=== PATIENT | female | born 1955 | race Caucasian/White ===

== ENCOUNTER 2019-03-10 18:11 | Inpatient (IN) | payer BC, OTHER ==
[~2019-03-10] VITALS: Ht 152.4 cm; Wt 63.5 kg
[~2019-03-10 18:11] MED LIST: ASPI-1821; GLIP10TA12; LOVA40TA5; METF1000; [UNRECOGNIZED DRUG - OTHER]; biotin; byetta; colace; vit b12; zoloft
[2019-03-10 18:15] VITALS: BP 152/89
--- NOTE | 2019-03-10 18:41 | NUR ---
c/o generalized abdominal pain/nausea x4 quadrants x 1 week and bright red bloody diarrhea x 1 day. pt denies vomiting & fever. bowel sounds present x 4, abdomen soft, flat, tender to palpation x4 quadrants. provided pt with hat for toilet to collect stool sample.
--- NOTE | 2019-03-10 19:13 | NUR ---
report given to DAHIANA Gutierrez for transfer of care.
--- NOTE | 2019-03-10 19:13 | NUR ---
REPORT RECIEVED. PATIENT PLACED ON MONITOR AND PUT IN GOWN. AWAITING CT AND LAB WORK.
--- NOTE | 2019-03-10 19:14 | NUR ---
stool and urine sample collected and sent to lab
--- NOTE | 2019-03-10 19:27 | NUR ---
LAB AT BEDSIDE.
--- NOTE | 2019-03-10 19:30 | NUR ---
PATIENT TAKEN TO CT IN WC
[2019-03-10 19:38] LABS: BASOPHILS # (AUTO) 0.1 K/uL (0.00-0.22); BASOPHILS % (AUTO) 0.5 % (0.0-2.0); EOSINOPHILS # (AUTO) 2.1 K/uL (0-0.4); EOSINOPHILS % (AUTO) 17.7 % (0.0-4.0); HEMATOCRIT 38.5 % (36-48); HEMOGLOBIN 12.4 g/dL (12.0-16.0); LYMPHOCYTES # (AUTO) 2.2 K/uL (2.5-16.5); LYMPHOCYTES % (AUTO) 18.6 % (20.5-51.1); MEAN CORPUSCULAR HEMOGLOBIN 27 pg (27-31); MEAN CORPUSCULAR HGB CONC 32 g/dL (33-37); MEAN CORPUSCULAR VOLUME 83.6 fL (80-94); MONOCYTES # (AUTO) 0.6 K/uL (0.8-1.0); MONOCYTES % (AUTO) 5.2 % (1.7-9.3); NEUTROPHILS # (AUTO) 6.7 K/uL (1.8-7.7); PLATELET COUNT (AUTO) 445 K/uL (140-450); RED CELL DISTRIBUTION WIDTH 15.6 % (11.6-13.7); WHITE BLOOD COUNT (AUTO) 11.6 K/uL (4.8-10.8)
[2019-03-10 19:45] LABS: ANION GAP 14.3 (8-16); CARBON DIOXIDE 27.2 mmol/L (21-32); CREATININE 0.9 mg/dL (0.6-1.3); POTASSIUM 4.5 mmol/L (3.5-5.1)
[2019-03-10 19:49] LABS: PROTHROMBIN TIME 10.3 secs (10.8-13.4)
--- NOTE | 2019-03-10 19:50 | NUR ---
DR ACEVEDO MADE AWARE [facility] AND STATES SHE IS NOT FEELING NORMAL, BP 100/68, PULSE 104. ORDERS RECIEVED.
[2019-03-10 19:51] LABS: ALBUMIN 3.5 g/dL (3.4-5.0); TOTAL BILIRUBIN 0.3 mg/dL (0.0-1.0)
[2019-03-10] MEDS ORDERED: NACL 0.9% 2,000 ML IV ONE (20:00)
[2019-03-10] MEDS ORDERED: ONDANSETRON 4 MG/2 ML VIAL IVP ONE (20:00)
[2019-03-10] MEDS ORDERED: CIPROFLOXACIN 250 MG TAB PO ONE (20:20)
[2019-03-10] MEDS ORDERED: metroNIDAZOLE 500 MG/NS PREMIX 100 ML IV ONE (20:20)
[2019-03-10] MEDS ORDERED: HYDROcodone/APAP 7.5/325 MG 1 TAB PO PRN (20:25)
[2019-03-10] MEDS ORDERED: ONDANSETRON 4 MG/2 ML VIAL IM/IVP PRN (20:25)
[2019-03-10] MEDS ORDERED: DOCUSATE SODIUM 100 MG GELCAP PO PRN (20:25)
[2019-03-10] MEDS ORDERED: ACETAMINOPHEN 325 MG TAB PO PRN (20:25)
[2019-03-10] MEDS ORDERED: MORPHINE SULFATE 2 MG/ML SYR IVP PRN (20:25)
[2019-03-10] MEDS ORDERED: NACL 0.9% 1,000 ML IV SCH (20:25)
--- NOTE | 2019-03-10 20:25 | NUR ---
PATIENT STATES SHE IS FEELING MUCH BETTER. DR ACEVEDO MADE AWARE.
[2019-03-10 20:36] LABS: APPEARANCE,URINE CLEAR (CLEAR); BILIRUBIN,URINE NEGATIVE (NEGATIVE); BLOOD, URINE NEGATIVE (NEGATIVE); COLOR,URINE YELLOW (YELLOW); LEUKOCYTE ESTERASE ,URINE NEGATIVE (NEGATIVE); NITRITE, URINE NEGATIVE (NEGATIVE); UGLUCOSE NEGATIVE (NEGATIVE)
[2019-03-10 20:51] LABS: BARBITURATE, URINE NEG. ng/ml (NEG <=200); BENZODIAZEPINE, URINE NEG. ng/mL (NEG <=200); CANNABINOID, URINE NEG. ng/mL (NEG <=50); COCAINE, URINE NEG. ng/mL (NEG <=300); OPIATE, URINE NEG. ng/mL (NEG <=2000); PHENCYCLIDINE SCREEN,URINE NEG. ng/mL (NEG <=25)
[2019-03-10 20:58] LABS: FREE T4 (FREE THYROXINE) 1.09 ng/dL (0.76-1.46); MAGNESIUM 1.9 mg/dL (1.8-2.4); PHOSPHORUS 3.8 mg/dL (2.5-4.9); THYROID STIMULATING HORMONE 1.79 uIU/mL (0.34-3.74)
[2019-03-10 21:00] VITALS: BP 107/59
--- NOTE | 2019-03-10 21:00 | NUR ---
PT BROUGHT UP VIA GURNEY BY [facility] EMT AND ROCIO RN TO ROOM 123, PT AMBULATED STEADILY TO BED A. REPORT GIVEN BY ROCIO AT BEDSIDE. PT HAS NO S/S OF DISTRESS NOTED. SHE IS AOX4 WITH SKIN INTACT. SHE HAS AN 18 G ON LEFT F/A AT THIS TIME RUNNING FLAGYL PIGGY BACK AT 100MLS/HR. PT DENIES PAIN V/S FOLLOWS T 97.5 P 97 R 18 B/P 116/53 02 98% ON ROOM AIR.
--- NOTE | 2019-03-10 21:11 | NUR ---
PATIENT ADMITTED TO [facility], UNDER CARE OF DR. WHITT. REPORT GIVEN TO DAHIANA WHITE, FOR CONTINUED CARE. TRANSORTED ON [facility]ETHEL BY EMT AND RN. PATIENT AAO AND VSS.
[2019-03-10] MEDS ORDERED: DEXTROSE 50% 50 ML SYR IVP PRN (21:20)
--- NOTE | 2019-03-10 21:30 | NUR ---
DR. العلي AT BEDSIDE ASKING ADMISSION QUESTIONS AND EVALUATING PT AT BEDSIDE. CRITICAL LAB REPORTED FOR THIS PT IT WAS LACTIC ACID 2.8. MD MADE AWARE. PT HAD BOLUS IN ER NO NEW ORDERS NOTED.
[2019-03-10] MEDS ORDERED: DEXT 5% /NACL 0.9% 1,000 ML IV SCH (21:35)
--- NOTE | 2019-03-10 22:00 | NUR ---
PORTABLE X-RAY DONE AT BEDSIDE.
[2019-03-11 04:00] VITALS: BP 93/3
[2019-03-11] MEDS: BLOOD GLUCOSE MONITORING 1 DEV DEV FS SCH ×4 (06:00→20:28)
[2019-03-11] MEDS: metroNIDAZOLE 500 MG/NS PREMIX 100 ML IV SCH ×3 (06:13→20:29)
--- NOTE | 2019-03-11 07:20 | NUR ---
REPORT GIVEN TO GREY TALBOT DAYSHIFT NURSE AT BEDSIDE FOR CONTINUITY OF CARE,PT IN STABLE CONDITION.
--- NOTE | 2019-03-11 07:25 | NUR ---
RECEIVED PT FROM SUPERVISOR PAPER PRODUCTS NURSE, CHRISTOPHER, PT IS AWAKE AND LYING ON THE BED WITH SIDE RAILS UP AND CALL LIGHT WITHIN REACH, PT HAS AN IV LINE ON THE LEFT FA G.18, WITH D5 NS INFUSING AT 70ML/HR, INTACT, PT DENIES PAIN AND NO SOB NOTED. WILL MONITOR PT.
[2019-03-11 07:32] LABS: BASOPHILS # (AUTO) 0.1 K/uL (0.00-0.22); BASOPHILS % (AUTO) 0.5 % (0.0-2.0); EOSINOPHILS # (AUTO) 1.9 K/uL (0-0.4); EOSINOPHILS % (AUTO) 17.7 % (0.0-4.0); HEMATOCRIT 28.5 % (36-48); HEMOGLOBIN 9.4 g/dL (12.0-16.0); LYMPHOCYTES # (AUTO) 2.4 K/uL (2.5-16.5); LYMPHOCYTES % (AUTO) 22.2 % (20.5-51.1); MEAN CORPUSCULAR HEMOGLOBIN 28 pg (27-31); MEAN CORPUSCULAR HGB CONC 33 g/dL (33-37); MEAN CORPUSCULAR VOLUME 83.5 fL (80-94); MONOCYTES # (AUTO) 0.6 K/uL (0.8-1.0); MONOCYTES % (AUTO) 5.3 % (1.7-9.3); NEUTROPHILS % (AUTO) 54.3 % (42.2-75.2); PLATELET COUNT (AUTO) 348 K/uL (140-450); RED BLOOD CELL COUNT(AUTO) 3.42 MIL/uL (4.20-5.40); RED CELL DISTRIBUTION WIDTH 15.6 % (11.6-13.7); WHITE BLOOD COUNT (AUTO) 10.9 K/uL (4.8-10.8)
[2019-03-11 07:34] LABS: ANION GAP 11.1 (8-16); CARBON DIOXIDE 24.7 mmol/L (21-32); CREATININE 0.6 mg/dL (0.6-1.3); POTASSIUM 3.8 mmol/L (3.5-5.1)
[2019-03-11 07:35] LABS: CHOL/HDL RATIO 2.2 (1-4.5)
[2019-03-11 08:00] VITALS: BP 106/59
--- NOTE | 2019-03-11 08:00 | NUR ---
PT IS AWAKE AND VITAL SIGNS TAKEN AND BP IS 106/59, PULSE IS 83, TEMPERATURE IS 98, O2 SATURATION IS 100%, AND RESPIRATION IS 18/MIN. NO SIGN OF DSITRESS NOTED AND WILL MONITOR PT.
[2019-03-11] MEDS: SERTRALINE 50 MG TAB PO SCH (08:31)
[2019-03-11] MEDS: ATORVASTATIN 20 MG TAB PO SCH (08:31)
[2019-03-11] MEDS: glipiZIDE 10 MG TAB PO SCH ×2 (08:32→20:29)
[2019-03-11] MEDS: LACTOBACILLUS RHAMNOSUS GG 1 EACH CAP PO SCH (08:32)
[2019-03-11] MEDS: NACL 0.9% 1,000 ML IV SCH (08:33)
[2019-03-11] MEDS: LISINOPRIL 10 MG TAB PO SCH ×2 (08:37→09:00)
--- NOTE | 2019-03-11 08:45 | NUR ---
PATIENT HAS BEEN SCREENED AND CATEGORIZED MODERATE NUTRITION RISK. PATIENT WILL BE SEEN WITHIN 3-5 DAYS OF ADMISSION. 03/13/19[address]IE [address]
--- NOTE | 2019-03-11 08:46 | NUR ---
PT IS AWAKE AND ORAL MEDICATIONS WERE GIVEN, BP MEDICATION WAS NOT GIVEN PER PARAMETER. WILL MONITOR PT.
[2019-03-11] MEDS ORDERED: cefTRIAXone 2,000 MG in DEXTROSE 5% 100 ML IV SCH (09:00)
[2019-03-11] MEDS ORDERED: metFORMIN 500 MG TAB PO SCH (09:00)
[2019-03-11] MEDS ORDERED: ASPIRIN 81 MG TAB.CHEW PO SCH (09:00)
[2019-03-11 12:00] VITALS: BP 123/67
[2019-03-11 13:19] LABS: BASOPHILS % (AUTO) 0.6 % (0.0-2.0); EOSINOPHILS # (AUTO) 1.4 K/uL (0-0.4); EOSINOPHILS % (AUTO) 17.5 % (0.0-4.0); HEMATOCRIT 29.2 % (36-48); HEMOGLOBIN 9.6 g/dL (12.0-16.0); LYMPHOCYTES % (AUTO) 24.6 % (20.5-51.1); MEAN CORPUSCULAR HEMOGLOBIN 28 pg (27-31); MEAN CORPUSCULAR HGB CONC 33 g/dL (33-37); MEAN CORPUSCULAR VOLUME 84.3 fL (80-94); MONOCYTES # (AUTO) 0.5 K/uL (0.8-1.0); MONOCYTES % (AUTO) 6.4 % (1.7-9.3); NEUTROPHILS # (AUTO) 4.2 K/uL (1.8-7.7); NEUTROPHILS % (AUTO) 50.9 % (42.2-75.2); PLATELET COUNT (AUTO) 370 K/uL (140-450); RED BLOOD CELL COUNT(AUTO) 3.47 MIL/uL (4.20-5.40); RED CELL DISTRIBUTION WIDTH 15.7 % (11.6-13.7); WHITE BLOOD COUNT (AUTO) 8.3 K/uL (4.8-10.8)
[2019-03-11] MEDS: cefTRIAXone 2,000 MG in DEXTROSE 5% 100 ML IV SCH (14:00)
[2019-03-11] MEDS: INSULIN LISPRO SLIDING SCALE 100 UNITS/ML VIAL SUBQ PRN ×2 (14:09→20:31)
--- NOTE | 2019-03-11 15:28 | NUR ---
PT IS AWAKE AND ON THE BEDSIDE, IV MEDICATION WAS GIVEN VIA PIGGYBACK, PT TOLERATED IT. NO SIGN OF DISTRESS NOTED AND WILL MONITOR PT.
[2019-03-11 16:00] VITALS: BP 111/65
[2019-03-11] MEDS: metFORMIN 500 MG TAB PO SCH (17:37)
--- NOTE | 2019-03-11 17:37 | NUR ---
PT IS AWAKE AND SEATED ON THE BED WITH FAMILY ON THE BEDSIDE, BLOOD GLUCOSE CHECK DONE AND RESULT IS 117, ORAL MEDICATION WAS GIVEN AND PT TOLERATED IT. NO SIGN OF DISTRESS NOTED AND WILL MONITOR PT.
[2019-03-11] MEDS ORDERED: BOWEL EVACUANT DRINK 4,000 ML PDS PO ONE (18:55)
[2019-03-11] MEDS ORDERED: METOCLOPRAMIDE 10 MG/2 ML INJ VIAL IVP ONE (18:55)
--- NOTE | 2019-03-11 19:10 | NUR ---
ENDORSED PT TO V BELT COVERER NURSECHANTALE FOR CONTINUITY OF CARE. PT IS STABLE AT THIS TIME.
--- NOTE | 2019-03-11 19:11 | NUR ---
RECEIVED REPORT FROM DAY SHIFT NURSE GREY-RN AT BEDSIDE. PT RESTING IN BED, AOX4, ON ROOM AIR WITH LEFT FA #18G RUNNING NS @60ML/HR. DISCUSSED PLAN OF CARE AND PT VERBALIZED UNDERSTANDING. NO S/S OF RESPIRATORY DISTRESS OR DISCOMFORT NOTED AT THIS TIME. BED IN LOWEST POSITION, BED BREAKS ON, BOTH SIDE RAILS UP. BEDSIDE TABLE AND CALL LIGHT WITHIN REACH. WILL CONTINUE TO MONITOR.
[2019-03-11 20:00] VITALS: BP 132/67
--- NOTE | 2019-03-11 20:00 | NUR ---
VITAL SIGNS TAKEN AND TOLERATED WELL. BLOOD GLUCOSE 162- WILL ADMINISTER INSULIN COVERAGE. NO S/S OF RESPIRATORY DISTRESS OR DISCOMFORT NOTED AT THIS TIME. WILL CONTINUE TO MONITOR.
[2019-03-11] MEDS: INSULIN LANTUS 100 UNITS/ML 10 ML VIAL SUBQ SCH (20:30)
--- NOTE | 2019-03-11 20:31 | NUR ---
SCHEDULED MEDICATION GIVEN. INSULIN COVERAGE GIVEN. PT TOLERATED WELL. REGLAN GIVEN BEFORE GOLYTELY INSTRUCTED BY DR. SARMIENTO. PT TOLERATED WELL. NO S/S OF RESPIRATORY DISTRESS OR DISCOMFORT NOTED AT THIS TIME. WILL CONTINUE TO MONITOR.
--- NOTE | 2019-03-11 22:00 | NUR ---
PT SLEEPING IN BED. NO S/S OF RESPIRATORY DISTRESS OR DISCOMFORT NOTED AT THIS TIME. WILL CONTINUE TO MONITOR.
[2019-03-12] VITALS: BP 126/61
--- NOTE | 2019-03-12 | NUR ---
VITAL SIGNS TAKEN AND TOLERATED WELL. NO S/S OF RESPIRATORY DISTRESS OR DISCOMFORT NOTED AT THIS TIME. WILL CONTINUE TO MONITOR.
[2019-03-12] MEDS: NACL 0.9% 1,000 ML IV SCH (00:25)
--- NOTE | 2019-03-12 02:00 | NUR ---
PT IN BATHROOM. NO S/S OF RESPIRATORY DISTRESS OR DISCOMFORT NOTED AT THIS TIME. WILL CONTINUE TO MONITOR.
[2019-03-12 04:00] VITALS: BP 123/66
--- NOTE | 2019-03-12 04:00 | NUR ---
PT SLEEPING IN BED. NO S/S OF RESPIRATORY DISTRESS OR DISCOMFORT NOTED AT THIS TIME. WILL CONTINUE TO MONITOR.
[2019-03-12] MEDS: metroNIDAZOLE 500 MG/NS PREMIX 100 ML IV SCH ×3 (05:06→20:15)
--- NOTE | 2019-03-12 05:06 | NUR ---
SCHEDULED MEDICATION GIVEN AND TOLERATED WELL. NO S/S OF RESPIRATORY DISTRESS OR DISCOMFORT NOTED AT THIS TIME. WILL CONTINUE TO MONITOR.
[2019-03-12] MEDS: BLOOD GLUCOSE MONITORING 1 DEV DEV FS SCH ×4 (05:54→20:16)
--- NOTE | 2019-03-12 05:55 | NUR ---
BLOOD GLUCOSE 76- NO INSULIN COVERAGE NEEDED. ASKED PT ON BM STATUS- PT STATED BM ARE LOOSE, LIQUID WITH SOME PARTICLES. NOT CLEAR YELLOW. NO S/S OF RESPIRATORY DISTRESS OR DISCOMFORT NOTED AT THIS TIME. WILL CONTINUE TO MONITOR.
[2019-03-12 05:59] LABS: BASOPHILS # (AUTO) 0.1 K/uL (0.00-0.22); EOSINOPHILS # (AUTO) 1.6 K/uL (0-0.4); EOSINOPHILS % (AUTO) 19.3 % (0.0-4.0); HEMATOCRIT 27.4 % (36-48); HEMOGLOBIN 9.1 g/dL (12.0-16.0); LYMPHOCYTES # (AUTO) 2.2 K/uL (2.5-16.5); LYMPHOCYTES % (AUTO) 27.3 % (20.5-51.1); MEAN CORPUSCULAR HEMOGLOBIN 28 pg (27-31); MEAN CORPUSCULAR HGB CONC 33 g/dL (33-37); MEAN CORPUSCULAR VOLUME 84.1 fL (80-94); MONOCYTES # (AUTO) 0.6 K/uL (0.8-1.0); MONOCYTES % (AUTO) 7.4 % (1.7-9.3); NEUTROPHILS # (AUTO) 3.6 K/uL (1.8-7.7); PLATELET COUNT (AUTO) 330 K/uL (140-450); RED BLOOD CELL COUNT(AUTO) 3.26 MIL/uL (4.20-5.40); RED CELL DISTRIBUTION WIDTH 15.5 % (11.6-13.7); WHITE BLOOD COUNT (AUTO) 8.1 K/uL (4.8-10.8)
[2019-03-12 06:28] LABS: ANION GAP 13.3 (8-16); CARBON DIOXIDE 23.4 mmol/L (21-32); CREATININE 0.6 mg/dL (0.6-1.3); POTASSIUM 3.7 mmol/L (3.5-5.1)
[2019-03-12 06:36] LABS: MAGNESIUM 1.7 mg/dL (1.8-2.4); PHOSPHORUS 3.2 mg/dL (2.5-4.9)
--- NOTE | 2019-03-12 07:36 | NUR ---
ENDORSED PT CARE TO DAY SHIFT NURSE GREY DSOUZA FOR CONTINUITY OF CARE.
--- NOTE | 2019-03-12 07:40 | NUR ---
RECEIVED PT FROM INTEGRATED CAMPAIGN MANAGER NURSECHANTALE, PT IS AWAKE AND LYING ON THE BED, SATURATING ON ROOM AIR, SIDE RAILS ARE UP AND CALL LIGHT WITHIN REACH, IV LINE ON THE LEFT FA G.18 WITH NS AT 60ML INFUSING AND INTACT. PT DENIES PAIN AND VERBALIZED THAT BOWEL IS NOT THAT CLEAR YET. NO SIGN OF DISTRESS NOTED AND WILL MONITOR PT.
[2019-03-12] MEDS: metFORMIN 500 MG TAB PO SCH ×2 (08:00→16:44)
[2019-03-12] MEDS: LACTOBACILLUS RHAMNOSUS GG 1 EACH CAP PO SCH (08:19)
[2019-03-12] MEDS: SERTRALINE 50 MG TAB PO SCH (08:19)
[2019-03-12] MEDS: LISINOPRIL 10 MG TAB PO SCH (08:20)
[2019-03-12] MEDS: ATORVASTATIN 20 MG TAB PO SCH (08:20)
[2019-03-12] MEDS: glipiZIDE 10 MG TAB PO SCH ×2 (08:21→20:15)
--- NOTE | 2019-03-12 08:26 | NUR ---
PT IS AWAKE AND SEATED ON THE BED, VITAL SIGNS WAS CHECKED AND BP IS 130/61, PULSE IS 82 AND O2 SATURATION IS 97%, ORAL MEDICATIONS WERE GIVEN, BLOOD GLUCOSE MEDICATIONS WERE HOLD PER BLOOD GLUCOSE IS 76, HEPARIN WAS NOT GIVEN BECAUSE PT WILL BE HAVING COLONOSCOPY TODAY. PT TOLERATED THE MEDICATIONS, DENIES PAIN AND NO SIGN OF DISTRESS NOTED. WILL MONITOR PT.
[2019-03-12] MEDS ORDERED: MAG SULF 2000 MG/WATER PREMIX 50 ML IV SCH (12:30)
[2019-03-12] MEDS: cefTRIAXone 2,000 MG in DEXTROSE 5% 100 ML IV SCH (12:36)
--- NOTE | 2019-03-12 12:45 | NUR ---
SPOKE TO DR. HINOJOSA AND MADE A TELEPHONE ORDER TO GIVE PT MAGNESIUM CITRATE ONCE TODAY FOR COLONOSCOPY PREPARATION, ACKNOWLEDGED, ORDER READ BACK AND VERIFIED.
[2019-03-12] MEDS ORDERED: MAGNESIUM CITRATE 300 ML BTL PO PRN (12:55)
[2019-03-12] MEDS: POTASSIUM CHL 20 MEQ/D5-1/2NS 1,000 ML IV SCH ×2 (14:26→21:00)
--- NOTE | 2019-03-12 14:30 | NUR ---
PT IS AWAKE AND IV MEDICATION WAS GIVEN TO PT AND NO SIGN OF DISTRESS NOTED. WILL MONITOR PT.
--- NOTE | 2019-03-12 16:20 | NUR ---
PT IS AWAKE AND SON ON THE BEDSIDE, MAGNESIUM IV WAS GIVEN AND PT TOLERATED IT. WILL MONITOR PT.
--- NOTE | 2019-03-12 16:51 | NUR ---
PT IS AWAKE AND VITAL SIGNS TAKEN, BP IS 113/66, PULSE IS 79, O2 SATURATION IS 99%, TEMPERATURE IS 97.4, RESPIRATION IS 18/MIN, BLOOD GLUCOSE CHECK DONE AND RESULT IS 118, ORAL MEDICATION WAS GIVEN AND PT WAS STARTED ON A CLEAR LIQUID DIET. WILL MONITOR PT.
--- NOTE | 2019-03-12 18:00 | NUR ---
PT WAS PLACED ON A CLEAR,LIQUID DIET NOW, PT CONSUMED 100% OF THE DINNER TRAY.
--- NOTE | 2019-03-12 19:10 | NUR ---
ENDORSED PT TO CONE WINDER NURSE, CHANTALE, FOR CONTINUITY OF CARE. PT IS STABLE AT THIS TIME.
--- NOTE | 2019-03-12 19:11 | NUR ---
RECEIVED REPORT FROM DAY SHIFT NURSE GREY-RN AT BEDSIDE. PT RESTING IN BED, AOX4, ON ROOM AIR WITH LEFT FA #18G RUNNING D5%/NACL 0.45%/KCL 20MEQ @ 100ML/HR. DISCUSSED PLAN OF CARE AND PT VERBALIZED UNDERSTANDING. NO S/S OF RESPIRATORY DISTRESS OR DISCOMFORT NOTED AT THIS TIME. BED IN LOWEST POSITION, BED BREAKS ON, BOTH SIDE RAILS UP. BEDSIDE TABLE AND CALL LIGHT WITHIN REACH. WILL CONTINUE TO MONITOR.
[2019-03-12 20:00] VITALS: BP 123/71
--- NOTE | 2019-03-12 20:00 | NUR ---
VITAL SIGNS TAKEN AND TOLERATED WELL. BLOOD GLUCOSE 187- WILL ADMINISTER INSULIN COVERAGE. NO S/S OF RESPIRATORY DISTRESS OR DISCOMFORT NOTED AT THIS TIME. WILL CONTINUE TO MONITOR.
[2019-03-12] MEDS: INSULIN LISPRO SLIDING SCALE 100 UNITS/ML VIAL SUBQ PRN (20:17)
[2019-03-12] MEDS: INSULIN LANTUS 100 UNITS/ML 10 ML VIAL SUBQ SCH (20:17)
--- NOTE | 2019-03-12 20:17 | NUR ---
SCHEDULED MEDICATION GIVEN AND INSULIN COVERAGE GIVEN. PT TOLERATED WELL. NO S/S OF RESPIRATORY DISTRESS OR DISCOMFORT NOTED AT THIS TIME. WILL CONTINUE TO MONITOR.
--- NOTE | 2019-03-12 22:00 | NUR ---
PT SLEEPING IN BED. NO S/S OF RESPIRATORY DISTRESS OR DISCOMFORT NOTED AT THIS TIME. WILL CONTINUE TO MONITOR.
[2019-03-13] VITALS: BP 95/52
--- NOTE | 2019-03-13 | NUR ---
VITAL SIGNS TAKEN AND TOLERATED WELL. NO S/S OF RESPIRATORY DISTRESS OR DISCOMFORT NOTED AT THIS TIME. WILL CONTINUE TO MONITOR.
--- NOTE | 2019-03-13 02:00 | NUR ---
PT SLEEPING IN BED. NO S/S OF RESPIRATORY DISTRESS OR DISCOMFORT NOTED AT THIS TIME. WILL CONTINUE TO MONITOR.
--- NOTE | 2019-03-13 04:00 | NUR ---
PT SLEEPING IN BED. NO S/S OF RESPIRATORY DISTRESS OR DISCOMFORT NOTED AT THIS TIME. WILL CONTINUE TO MONITOR.
[2019-03-13] MEDS: metroNIDAZOLE 500 MG/NS PREMIX 100 ML IV SCH (04:24)
--- NOTE | 2019-03-13 04:24 | NUR ---
SCHEDULED MEDICATION FLAGYL GIVEN AND TOLERATED WELL. NO S/S OF RESPIRATORY DISTRESS OR DISCOMFORT NOTED AT THIS TIME. WILL CONTINUE TO MONITOR.
--- NOTE | 2019-03-13 06:00 | NUR ---
PT SLEEPING IN BED. NO S/S OF RESPIRATORY DISTRESS OR DISCOMFORT NOTED AT THIS TIME. WILL CONTINUE TO MONITOR.
--- NOTE | 2019-03-13 06:24 | NUR ---
DR. ABDIRAHSID HARTLEY IN TO SEE PT. BM STILL NOT COMPLETELY CLEAR WITH SOME PARTICLES. LEFT CLEAN HAT IN TOILET AND PT IS AWARE THAT RN WANTS TO SEE BM CONSISTENCY.
[2019-03-13 06:27] LABS: BASOPHILS # (AUTO) 0.1 K/uL (0.00-0.22); BASOPHILS % (AUTO) 0.9 % (0.0-2.0); EOSINOPHILS # (AUTO) 0.7 K/uL (0-0.4); EOSINOPHILS % (AUTO) 10.3 % (0.0-4.0); HEMATOCRIT 28.5 % (36-48); HEMOGLOBIN 9.3 g/dL (12.0-16.0); LYMPHOCYTES # (AUTO) 1.9 K/uL (2.5-16.5); LYMPHOCYTES % (AUTO) 27.3 % (20.5-51.1); MEAN CORPUSCULAR HEMOGLOBIN 28 pg (27-31); MEAN CORPUSCULAR HGB CONC 33 g/dL (33-37); MEAN CORPUSCULAR VOLUME 84.1 fL (80-94); MONOCYTES # (AUTO) 0.5 K/uL (0.8-1.0); MONOCYTES % (AUTO) 7.8 % (1.7-9.3); NEUTROPHILS # (AUTO) 3.7 K/uL (1.8-7.7); NEUTROPHILS % (AUTO) 53.7 % (42.2-75.2); PLATELET COUNT (AUTO) 356 K/uL (140-450); RED BLOOD CELL COUNT(AUTO) 3.39 MIL/uL (4.20-5.40); RED CELL DISTRIBUTION WIDTH 15.6 % (11.6-13.7); WHITE BLOOD COUNT (AUTO) 6.9 K/uL (4.8-10.8)
[2019-03-13 06:28] LABS: ANION GAP 12.2 (8-16); CARBON DIOXIDE 24.5 mmol/L (21-32); CREATININE 0.6 mg/dL (0.6-1.3); POTASSIUM 3.7 mmol/L (3.5-5.1)
[2019-03-13 06:46] LABS: MAGNESIUM 1.7 mg/dL (1.8-2.4); PHOSPHORUS 3.3 mg/dL (2.5-4.9)
[2019-03-13] MEDS: POTASSIUM CHL 20 MEQ/D5-1/2NS 1,000 ML IV SCH (06:49)
[2019-03-13] MEDS: BLOOD GLUCOSE MONITORING 1 DEV DEV FS SCH ×2 (06:49→11:30)
--- NOTE | 2019-03-13 06:49 | NUR ---
MAGCITRATE GIVEN. BLOOD GLUCOSE 84- NO INSULIN GIVEN. PT TOLERATED WELL. NO S/S OF RESPIRATORY DISTRESS OR DISCOMFORT NOTED AT THIS TIME. WILL CONTINUE TO MONITOR.
[2019-03-13] MEDS ORDERED: MAGNESIUM CITRATE 300 ML BTL PO SCH (07:00)
--- NOTE | 2019-03-13 07:23 | NUR ---
ENDORSED PT CARE TO DAY SHIFT NURSE SHERIF FOR CONTINUITY OF CARE.
--- NOTE | 2019-03-13 07:28 | NUR ---
RECEIVED REPORT FROM FURNITURE UPHOLSTERER RN AT BEDSIDE. PT RESTING IN BED, AOX4, ON ROOM AIR WITH LEFT FA #18G RUNNING D5%/NACL 0.45%/KCL 20MEQ @ 100ML/HR. DISCUSSED PLAN OF CARE AND PT VERBALIZED UNDERSTANDING. NO S/S OF RESPIRATORY DISTRESS OR DISCOMFORT NOTED AT THIS TIME. BED IN LOWEST POSITION, BED BREAKS ON, BOTH SIDE RAILS UP. BEDSIDE TABLE AND CALL LIGHT WITHIN REACH. WILL CONTINUE TO MONITOR.
[2019-03-13] MEDS ORDERED: MAG SULF 2000 MG/WATER PREMIX 50 ML IV SCH (07:30)
[2019-03-13 08:00] VITALS: BP 113/62
[2019-03-13] MEDS: ATORVASTATIN 20 MG TAB PO SCH (09:30)
[2019-03-13] MEDS: LACTOBACILLUS RHAMNOSUS GG 1 EACH CAP PO SCH (09:30)
[2019-03-13] MEDS: metFORMIN 500 MG TAB PO SCH (09:30)
[2019-03-13] MEDS: LISINOPRIL 10 MG TAB PO SCH (09:31)
[2019-03-13] MEDS: SERTRALINE 50 MG TAB PO SCH (09:31)
[2019-03-13] MEDS: glipiZIDE 10 MG TAB PO SCH (09:31)
--- NOTE | 2019-03-13 09:57 | NUR ---
ADMINISTERED MORNING MEDS TO PT. PT TOLERATED THEM WELL. NO SIGNS OF DISTRESS OR PAIN. PT TO HAVE COLONOSCOPY SOON.
[2019-03-13] MEDS ORDERED: fentaNYL 0.05 MG/ML VIAL ONE (10:40)
[2019-03-13] MEDS ORDERED: diphenhydrAMINE 50 MG/ML VIAL ONE (10:40)
[2019-03-13] MEDS ORDERED: MIDAZOLAM 2 MG/2 ML VIAL ONE (10:40)
--- NOTE | 2019-03-13 10:57 | NUR ---
PT GOING FOR COLONOSCOPY. PT IN STABLE CONDITION AT THIS TIME.
[2019-03-13] MEDS ORDERED: fentaNYL 0.05 MG/ML VIAL IVP ONE (11:40)
[2019-03-13] MEDS ORDERED: MIDAZOLAM 2 MG/2 ML VIAL IVP ONE (11:40)
--- NOTE | 2019-03-13 11:48 | NUR ---
PT RETURNED FROM COLONOSCOPY. PT IN STABLE CONDITION. VS: BP-94/48, HR-75, RR-16, O2 SAT-96%, TEMP-98.1. WILL ROUND FREQUENTLY ON PT.
[2019-03-13] MEDS ORDERED: LISI10TA11 PO (12:21)
[2019-03-13] MEDS ORDERED: LACT10CA PO (12:21)
[2019-03-13] MEDS ORDERED: METPCK PO (12:21)
[2019-03-13] MEDS ORDERED: DOCU-463 PO (12:21)
[2019-03-13] MEDS ORDERED: FER325 PO (12:21)
[2019-03-13] MEDS ORDERED: CIPR250T3 PO (12:21)
--- NOTE | 2019-03-13 13:47 | NUR ---
PT RESTING IN BED. NO COMPLAINTS OF PAIN OR DISTRESS. WILL MONITOR PT FREQUENTLY.
[2019-03-13] MEDS ORDERED: DOCUSATE SODIUM 250 MG GELCAP PO SCH (14:00)
--- NOTE | 2019-03-13 15:35 | NUR ---
PT DISCHARGE HOME FOR SELF CARE. PT DISCHARGE PAPERWORK GIVEN. PT VERBALIZED UNDERSTANDING OF TEACHING. IV REMOVED WITH TIP INTACT. ALL PERSONAL BELONGINGS TAKEN WITH PT. WRIST BANDS REMOVED AND PLACED IN SHRED BIN. PT LEFT IN STABLE CONDITION VIA [employer]URES.
[2019-03-13] MEDS ORDERED: FERROUS SULFATE 325 MG TABEC PO SCH (17:00)
[2019-03-13] MEDS ORDERED: CIPROFLOXACIN 250 MG TAB PO SCH (21:00)
[2019-03-13] MEDS ORDERED: PSYLLIUM 12.2 GM/PKT PO SCH (21:00)
[2019-03-14] MEDS ORDERED: DOCUSATE SODIUM 100 MG GELCAP PO SCH (09:00)
== END 2019-03-13 15:35 | disposition home or self-care (01) | DRG 378 ==
LOC: MED 18:11 → MTU 20:28
PROVIDERS: ADMIT General Practice; ATTEND General Practice
PROC: 0DBP8ZZ Excision of Rectum, Via Natural or Artificial Opening Endoscopic (ICD-10-PCS; principal; 2019-03-13 11:00)
DX: K57.33 Diverticulitis of large intestine without perforation or abscess with bleeding (principal); E87.2 Acidosis; K57.31 Diverticulosis of large intestine without perforation or abscess with bleeding; E11.65 Type 2 diabetes mellitus with hyperglycemia; I10 Essential (primary) hypertension; E83.42 Hypomagnesemia; E87.8 Other disorders of electrolyte and fluid balance, not elsewhere classified; F32.9 Major depressive disorder, single episode, unspecified; K56.41 Fecal impaction; Z96.643 Presence of artificial hip joint, bilateral; K57.32 Diverticulitis of large intestine without perforation or abscess without bleeding; E78.5 Hyperlipidemia, unspecified; K76.0 Fatty (change of) liver, not elsewhere classified; M47.816 Spondylosis without myelopathy or radiculopathy, lumbar region; Z87.442 Personal history of urinary calculi; Z88.1 Allergy status to other antibiotic agents; Z79.899 Other long term (current) drug therapy; Z79.84 Long term (current) use of oral hypoglycemic drugs
CPT/HCPCS: 36415; 71045; 76705; 80048; 80053; 80305; 81003; 82140; 82272; 82948; 83036; 83605; 83690; 83735; 83880; 84100; 84439; 84443; 84484; 85025; 85610; 85730; 87040; 87081; 87086; 88305; 89055; 93005; 96365; 96375; 99291; J0696; J1200; J1644; J1815; J2250; J2405; J2765; J3010; J3475; J3490; J7030; J7042; J7060; Q0092